=== PATIENT | female | born 1985 | race Caucasian/White ===

== ENCOUNTER 2019-07-01 16:55 | Emergency (ER) | payer SELFPAY ==
[~2019-07-01] VITALS: Ht 157.5 cm; Wt 90.7 kg
--- OUTSIDE RECORDS SUMMARY | 2019-07-01 16:56 | XMS REPORT ---
Author [facility] Address Unknown Phone Unavailable Care Team Providers Care Capture Manager Name Role Phone Unavailable Unavailable Payers Payer Name Policy Type Policy Number Effective Date Expiration Date Problems This patient has no known problems. Allergies, Adverse Reactions, Alerts Allergy Name Allergy Type Status Severity Reaction(s) Onset Date Inactive Date Treating Clinician Comments No Known Allergies DA Active U 2019-03-22 00:00:00 No Known Allergies DA Active U 2017-10-26 00:00:00 Medications This patient has no known medications. Encounters Start Date/Time End Date/Time Encounter Type Admission Type Attending Clinicians Care Facility Care Department Encounter ID 2018-01-11 00:00:00 2018-01-11 00:00:00 Outpatient [facility] [id number] 2017-05-10 12:24:46 2017-05-10 12:24:46 Outpatient [facility] [id number] Results Test Description Test Time Test Comments Text Results Atomic Results Result Comments C. TRACHOMATIS DNA BY PCR 2018-12-28 10:16:00 C. TRACHOMATIS DNA BY PCR (test code=CHLAMTDNA) Negative Negative N. GONORRHOEAE DNA BY [id number] 10:16:00* Test Item Value Reference Range Comments N. GONORRHOEAE DNA BY PCR (test code=NGONORDNA) Negative C. TRACHOMATIS DNA BY [id number] 10:16:00* Test Item Value Reference Range Comments C. TRACHOMATIS DNA BY PCR (test code=CHLAMTDNA) Negative Negative N. GONORRHOEAE DNA BY [id number] 10:16:00* Test Item Value Reference Range Comments N. GONORRHOEAE DNA BY PCR (test code=NGONORDNA) Negative Negative [facility] [place], [place] [id number] Brittany FRANKS Ph:[phone] performed at: [facility] [address] [place] [address] URINALYSIS [id number] 07:41:00* Test Item Value Reference Range Comments UA COLOR (test code=COLU) YELLOW YELLOW UA APPEARANCE (test code=APPU) CLEAR CLEAR UA GLUCOSE DIPSTICK (test code=DGLUU) NEGATIVE mg/dL NEGATIVE UA BILIRUBIN DIPSTICK (test code=BILU) NEGATIVE mg/dL NEGATIVE UA KETONE DIPSTICK (test code=KETU) NEGATIVE mg/dL NEGATIVE UA SPECIFIC GRAVITY (test code=SGU) 1.028 1.001-1.035 UA BLOOD DIPSTICK (test code=JHON) Negative mg/dL NEGATIVE UA PH DIPSTICK (test code=BALAJI) 5.5 5.0-8.0 UA PROTEIN DIPSTICK (test code=PROU) 10 (Trace) mg/dL NEGATIVE UA UROBILINIOGEN DIPSTICK (test code=URO) Normal mg/dL NEGATIVE UA NITRITE DIPSTICK (test code=SENDY) NEGATIVE NEGATIVE UA LEUKOCYTE ESTERASE W REFLEX (test code=LEUUR) 500 Abdirizak/uL (3+) Abdirizak/uL NEGATIVE UA WBC (test code=WBCU) 6-10 per HPF 0-5 UA RBC (test code=RBCU) 0-2 #/HPF 0-5 UA EPITHELIAL CELLS (test code=EPIU) FEW per HPF FEW UA BACTERIA (test code=BACU) MODERATE #/HPF NONE UA MUCUS (test code=MUCU) FEW #/LPF FEW UA AMORPHOUS SEDIMENT (test code=AMORU) FEW #/LPF NONE Urine Source? Clean CatchUR HCG [id number] 07:41:00* Test Item Value Reference Range Comments UR HCG QUAL (test code=HCGQLU) Urine Source? Clean CatchURINALYSIS [id number] 07:41:00* Test Item Value Reference Range Comments UA COLOR (test code=COLU) YELLOW YELLOW UA APPEARANCE (test code=APPU) CLEAR CLEAR UA GLUCOSE DIPSTICK (test code=DGLUU) NEGATIVE mg/dL NEGATIVE UA BILIRUBIN DIPSTICK (test code=BILU) NEGATIVE mg/dL NEGATIVE UA KETONE DIPSTICK (test code=KETU) NEGATIVE mg/dL NEGATIVE UA SPECIFIC GRAVITY (test code=SGU) 1.028 1.001-1.035 UA BLOOD DIPSTICK (test code=JHON) Negative mg/dL NEGATIVE UA PH DIPSTICK (test code=BALAJI) 5.5 5.0-8.0 UA PROTEIN DIPSTICK (test code=PROU) 10 (Trace) mg/dL NEGATIVE UA UROBILINIOGEN DIPSTICK (test code=URO) Normal mg/dL NEGATIVE UA NITRITE DIPSTICK (test code=SENDY) NEGATIVE NEGATIVE UA LEUKOCYTE ESTERASE W REFLEX (test code=LEUUR) 500 Abdirizak/uL (3+) Abdirizak/uL NEGATIVE UA WBC (test code=WBCU) 6-10 per HPF 0-5 UA RBC (test code=RBCU) 0-2 #/HPF 0-5 UA EPITHELIAL CELLS (test code=EPIU) FEW per HPF FEW UA BACTERIA (test code=BACU) MODERATE #/HPF NONE UA MUCUS (test code=MUCU) FEW #/LPF FEW UA AMORPHOUS SEDIMENT (test code=AMORU) FEW #/LPF NONE Urine Source? Clean CatchUR HCG [id number] 07:41:00* Test Item Value Reference Range Comments UR HCG QUAL (test code=HCGQLU) NEGATIVE This HCGQL test is NOT applicable for MALE patients.Check with nurse about probable order error.If Tumor Marker Test needed, nurse should order test "HCGTU"(Test #[id number]) Urine Source? Clean Catch
[2019-07-01 17:47] LABS: BASOPHILS # (AUTO) 0.1 (0.0-0.1); BASOPHILS % 0.8 % (0.0-1.0); EOSINOPHILS # (AUTO) 0.3 (0.0-0.4); EOSINOPHILS % 4.7 % (0.0-6.0); HEMATOCRIT 43.9 % (34.2-44.1); HEMOGLOBIN 14.4 g/dL (12.0-16.0); LYMPHOCYTES # (AUTO) 2.8 (1.0-3.2); MEAN CORPUSCULAR HEMOGLOBIN 29.4 pg (28-32); MEAN CORPUSCULAR HGB CONC 32.8 g/dL (31-35); MEAN CORPUSCULAR VOLUME 89.8 fL (81-99); MONOCYTES # (AUTO) 0.7 (0.2-0.8); MONOCYTES % 10.2 % (4.4-11.3); NEUTROPHILS # (AUTO) 2.7 (2.1-6.9); NEUTROPHILS % 41.8 % (38.7-80.0); PLATELET COUNT 260 x10e3/uL (140-360); RED BLOOD COUNT 4.89 x10e6/uL (3.6-5.1); RED CELL DISTRIBUTION WIDTH 12.9 % (11.7-14.4)
[2019-07-01 17:54] LABS: BILIRUBIN,URINE NEGATIVE (NEGATIVE); CLARITY,URINE HAZY (CLEAR); COLOR,URINE YELLOW (YELLOW); KETONES,URINE NEGATIVE (NEGATIVE); LEUKOCYTE ESTERASE ,URINE SMALL (NEGATIVE); NITRITE,URINE NEGATIVE (NEGATIVE); PROTEIN,URINE DIPSTICK TRACE (NEGATIVE); URINE UROBILINOGEN 0.2 mg/dL (0.2 - 1)
[2019-07-01 17:56] LABS: BACTERIA,URINE MODERATE /HPF; EPITHELIAL CELLS,URINE MODERATE /LPF; RBC,URINE 0-5 /HPF (0-5); WBC,URINE (MAN) 0-5 /HPF (0-5)
[2019-07-01 18:01] LABS: ALANINE AMINOTRANSFERASE 34 IU/L (0-55); ALBUMIN 3.9 g/dL (3.5-5.0); ALBUMIN/GLOBULIN RATIO 1.3 (0.8-2.0); ALKALINE PHOSPHATASE 89 IU/L (40-150); ANION GAP 12.7 mmol/L (8-16); BLOOD UREA NITROGEN 10 mg/dL (7-26); BUN/CREATININE RATIO 13 (6-25); CARBON DIOXIDE 26 mmol/L (22-29); CHLORIDE 106 mmol/L (98-107); CREATININE, SERUM 0.79 mg/dL (0.57-1.11); EST GLOMERULAR FILTRATION RATE > 60 ML/MIN (60-); GLUCOSE 91 mg/dL (74-118); POTASSIUM 3.7 mmol/L (3.5-5.1); SODIUM 141 mmol/L (136-145)
[2019-07-01 18:12] LABS: STREPTOCOCCUS GRP A ANTIGEN NEGATIVE (NEGATIVE)
[2019-07-01 18:18] LABS: INFLUENZAE A&B ANTIGEN (RAPID) NEGATIVE (NEGATIVE)
[2019-07-01] MEDS ORDERED: AUGMENTIN 875-1 EACH PO (18:32)
[2019-07-01 18:58] VITALS: BP 108/81
== END 2019-07-01 19:02 | disposition home or self-care (01) ==
LOC: ER 16:55
DX: J01.10 Acute frontal sinusitis, unspecified (principal); J06.9 Acute upper respiratory infection, unspecified
CPT/HCPCS: 36415; 80053; 81001; 83518; 85025; 87070; 87400; 99283

== ENCOUNTER 2020-07-29 10:01 | Emergency (ER) | payer SELFPAY ==
[~2020-07-29] VITALS: Ht 157.5 cm; Wt 90.7 kg
[~2020-07-29 10:01] MED LIST: AUGMENTIN 875-1 EACH PO
[2020-07-29] MEDS ORDERED: ROBAXIN-750750 MG PO ×2 (10:13→10:15)
[2020-07-29] MEDS ORDERED: IBUPROFEN400 MG PO (10:13)
[2020-07-29] MEDS ORDERED: PREDNISONE20 MG PO (10:17)
== END 2020-07-29 10:22 | disposition home or self-care (01) ==
LOC: ER 10:15
DX: M25.552 Pain in left hip (principal); M54.32 Sciatica, left side
CPT/HCPCS: 99282

== ENCOUNTER 2021-07-31 13:00 | Emergency (ER) | payer SELFPAY ==
[~2021-07-31 13:00] MED LIST changes: +IBUPROFEN400 MG PO; +PREDNISONE20 MG PO; +ROBAXIN-750750 MG PO
[2021-07-31 14:19] LABS: CLARITY,URINE CLEAR (CLEAR); COLOR,URINE YELLOW (YELLOW); KETONES,URINE NEGATIVE (NEGATIVE); LEUKOCYTE ESTERASE ,URINE NEGATIVE (NEGATIVE); NITRITE,URINE NEGATIVE (NEGATIVE); PROTEIN,URINE DIPSTICK NEGATIVE (NEGATIVE); URINE UROBILINOGEN 0.2 mg/dL (0.2 - 1)
[2021-07-31 14:24] LABS: BACTERIA,URINE RARE /HPF; EPITHELIAL CELLS,URINE FEW /LPF; RBC,URINE 0-5 /HPF (0-5); WBC,URINE (MAN) 0-5 /HPF (0-5)
[2021-07-31] MEDS ORDERED: METRONIDAZOLE500 MG PO (15:31)
== END 2021-07-31 15:54 | disposition home or self-care (01) ==
LOC: ER 13:29
DX: R30.0 Dysuria (principal); N76.0 Acute vaginitis
CPT/HCPCS: 81001; 81025; 87210; 87491; 87591; 99283

== ENCOUNTER 2022-01-28 14:56 | Emergency (ER) | payer SELFPAY ==
[~2022-01-28] VITALS: Ht 157.5 cm; Wt 90.7 kg
[~2022-01-28 14:56] MED LIST changes: +METRONIDAZOLE500 MG PO
== END 2022-01-28 16:29 | disposition home or self-care (01) ==
LOC: ER 14:59
DX: H11.31 Conjunctival hemorrhage, right eye (principal)
CPT/HCPCS: 99283